=== PATIENT | female | born 1995 | race Caucasian/White ===

== ENCOUNTER 2017-05-25 06:36 | Day surgery (SDC) | payer OTHER ==
[~2017-05-25] VITALS: Ht 165.1 cm; Wt 98.1 kg
[2017-05-25 06:54] VITALS: BP 133/77; PULSE 104; TEMP 98.2
[2017-05-25] MEDS ORDERED: ENTOCORT EC3 MG PO (07:09)
[2017-05-25] MEDS ORDERED: NORCO 325 MG-51 TAB PO (07:10)
[2017-05-25] MEDS ORDERED: SOMA 350MG350 MG/TAB PO (07:10)
[2017-05-25] MEDS ORDERED: PHENERGAN 25 TA25 MG PO (07:11)
[2017-05-25] MEDS ORDERED: PROAIR HFA0.09 MG/AC IH (07:12)
[2017-05-25] MEDS ORDERED: VOLTAREN GEL 1%1 TU TP (07:12)
[2017-05-25] MEDS ORDERED: PRILOSEC 20MG20 MG PO (08:38)
[2017-05-25 08:50] VITALS: BP 120/80; PULSE 90; TEMP 98.3
[2017-05-25 09:05] VITALS: BP 120/75; PULSE 94
[2017-05-25 09:20] VITALS: BP 121/77; PULSE 88
== END 2017-05-25 09:25 | disposition home or self-care (01) ==
LOC: SDCO 06:36
DX: K50.10 Crohn's disease of large intestine without complications (principal); K50.00 Crohn's disease of small intestine without complications; K63.89 Other specified diseases of intestine; K64.0 First degree hemorrhoids; J45.909 Unspecified asthma, uncomplicated; G89.29 Other chronic pain; M54.9 Dorsalgia, unspecified; F17.210 Nicotine dependence, cigarettes, uncomplicated; D50.0 Iron deficiency anemia secondary to blood loss (chronic); M25.50 Pain in unspecified joint; Z87.11 Personal history of peptic ulcer disease; Z68.36 Body mass index [BMI] 36.0-36.9, adult
CPT/HCPCS: OP; J2704; J7120

== ENCOUNTER → 2017-10-29 | Outpatient (CLI) | payer OTHER ==
[~2017-10-29] MED LIST: ENTOCORT EC3 MG PO; NORCO 325 MG-51 TAB PO; PHENERGAN 25 TA25 MG PO; PRILOSEC 20MG20 MG PO; PROAIR HFA0.09 MG/AC IH; SOMA 350MG350 MG/TAB PO; VOLTAREN GEL 1%1 TU TP
== END ==
LOC: COL.LAB 13:45
DX: K50.811 Crohn's disease of both small and large intestine with rectal bleeding (principal)